=== PATIENT | female | born 1950 | race African-American/Black ===

== ENCOUNTER 2016-02-24 14:06 | Emergency (ER) | payer MEDICARE, OTHER ==
[~2016-02-24] VITALS: Ht 168.9 cm; Wt 55.0 kg
[~2016-02-24 14:06] MED LIST: ASPI81TA11 PO; CHOL1TAB42 PO; HYDR-2374 PO; LAMI200T PO; MACR100C2 PO; PROZ40CA PO; RISP1 PO
[2016-02-24 14:08] VITALS: BP 159/71; PULSE 95; RESP 12; TEMP 98.9; O2SAT 99
[2016-02-24 15:34] LABS: BACTERIA, URINE OCC /hpf; BLOOD, URINE NEG (NEG); COMMENT (UR) CULTURE INDICATED; CULTURE IF INDICATED CULTURE INDICATED; GLUCOSE,URINE NEG (NEG); KETONE, URINE NEG (NEG); NITRITE,URINE NEG (NEG); SQUAMOUS EPITHELIAL CELL URINE <1 /hpf (0-5); URINE COLOR YELLOW (YELLW/STRAW)
[2016-02-24] MEDS ORDERED: TRIAMCINOLONE ACETONIDE 0.1% OINT 15 GM TUBE TOPICAL ONE (16:15)
--- NOTE | 2016-02-24 16:15 | PD ---
HPI Chief Complaint: Complaint Time Seen by Provider: 15:00 Travel History International Travel<30 days: No Contact w/Intl Traveler<30days: No Traveled to known affect area: No History of Present Illness HPI Patient is a 65-year-old female who presented to emergency department complaining of urinary frequency, burning and itching in her perineal area. She states this started again yesterday. She states that she has a prolapsed bladder. She denies any fever, chills, nausea, vomiting, abdominal pain or back pain. PFSH Past Medical History Arthritis: Yes (osteoarhritis, RHEUMATOID) Asthma: No Autoimmune Disease: No Blood Disorders: No Bipolar Disorder: Yes Anxiety: Yes Depression: Yes Heart Rhythm Problems: No Cancer: No Cardiovascular Problems: No High Cholesterol: No Chemotherapy: No Chest Pain: No Congestive Heart Failure: No COPD: No Cerebrovascular Accident: Yes Diabetes: Yes Dialysis: Yes (h/o for the past 2 years) Diminished Hearing: No Endocrine: Yes Gastrointestinal Disorders: Yes GERD: No Glaucoma: No Genitourinary: Yes Headaches: No Hepatitis: No Hiatal Hernia: No Heparin Induced Thrombocytopen: No Hypertension: No Immune Disorder: Yes Implanted Vascular Access Dvce: No Kidney Stones: No Musculoskeletal: Yes Neurologic: No Psychiatric: Yes (pt has had psychiatric problems since 1992) Reproductive: No Respiratory: Yes Immunizations Current: Yes Migraines: No Myocardial Infarction: No Radiation Therapy: No Renal Failure: Yes Seizures: No Sickle Cell Disease: No Sleep Apnea: No Thyroid Disease: No Ulcer: No ?: Not Past Surgical History Abdominal Surgery: No AICD: No Appendectomy: No Arteriovenous Shunt: No Cardiac Surgery: No Cholecystectomy: No Ear Surgery: No Endocrine Surgery: No Eye Surgery: No Genitourinary Surgery: No Gynecologic Surgery: Yes (PARTIAL HYSTERECTOMY) Hysterectomy: Yes (PARTIAL) Insulin Pump: No Joint Replacement: No Neurologic Surgery: No Oral Surgery: No Pacemaker: No Thoracic Surgery: No Other Surgery: Yes (hysterectomy) Social History Alcohol Use: No Tobacco Use: No Substance Use: No Allergies-Medications (Allergen,Severity, Reaction): Coded Allergies: Percocet (Verified Allergy, Intermediate, ITCHING, 02/24/16) Ultram (Verified Allergy, Mild, ITCH, 02/24/16) Wellbutrin (Verified Allergy, Mild, ITCH, 02/24/16) Morphine (Verified Adverse Reaction, Intermediate, VOMITING, 02/24/16) Vistaril (Verified Adverse Reaction, Intermediate, SHAKING AND JERKING, 02/24/16) Reported Meds & Prescriptions Reported Meds & Active Scripts Active Macrobid (Nitrofurantoin Monoh/Nitrofur Macro) 100 Mg Cap 100 Mg PO BID 7 Days Risperdal (Risperidone) 1 Mg Tab 1 Mg PO Q12HR Aspirin EC (Aspirin) 81 Mg Tabdr 81 Mg PO DAILY Reported Hydrocodone-Acetaminophen 10-300 Tab 1 Tab PO BID PRN Vitamin D-3 (Cholecalciferol) 2,000 Unit Tab 2,000 Mg PO Lamictal (Lamotrigine) 200 Mg Tab 200 Mg PO DAILY Prozac (Fluoxetine HCl) 40 Mg Cap 20 Mg PO DAILY IN THE AM Review of Systems Except as stated in HPI: all other systems reviewed are Neg General / Constitutional: No: Fever Cardiovascular: No: Chest Pain or Discomfort Respiratory: No: Shortness of Breath Gastrointestinal: No: Nausea, Vomiting, Diarrhea, Abdominal Pain, Changes in Bowel Habits Genitourinary: Positive: Frequency, Dysuria, Other (perineal itching) Skin: Positive Itching Physical Exam Narrative GENERAL: Well-nourished, well-developed patient. SKIN: Warm and dry. HEAD: Normocephalic. EYES: No scleral icterus. No injection or drainage. NECK: Supple, trachea midline. No JVD or lymphadenopathy. CARDIOVASCULAR: Regular rate and rhythm without murmurs, gallops, or rubs. RESPIRATORY: Breath sounds equal bilaterally. No accessory muscle use. GASTROINTESTINAL: Abdomen soft, non-tender, nondistended. Positive bowel sounds , no rebound, no guarding. GENITOURINARY: No discharge noted, peroneal skin appears dry, bladder prolapse. MUSCULOSKELETAL: No cyanosis, or edema. BACK: Nontender without obvious deformity. No CVA tenderness. Data Data Last Documented VS Vital Signs Date Time Temp Pulse Resp B/P Pulse Ox O2 Delivery O2 Flow Rate FiO2 02/24/16 14:08 98.9 95 12 159/71 99 Room Air Orders Urinalysis - C+S If Indicated (02/24/16 14:51) Urine Culture (02/24/16 15:00) Labs Laboratory Tests Test 02/24/16 15:00 Urine Color YELLOW Urine Turbidity HAZY Urine pH 5.0 Urine Specific Vantage 1.008 Urine Protein NEG mg/dL Urine Glucose (UA) NEG mg/dL Urine Ketones NEG mg/dL Urine Occult Blood NEG Urine Nitrite NEG Urine Bilirubin NEG Urine Urobilinogen LESS THAN 2.0 MG/DL Urine Leukocyte Esterase LARGE Urine RBC 2 /hpf Urine WBC 42 /hpf Urine Squamous Epithelial <1 /hpf Cells Urine Bacteria OCC /hpf Microscopic Urinalysis Comment CULTURE INDICATED MDM Medical Decision Making Medical Screen Exam Complete: Yes Emergency Medical Condition: Yes Interpretation(s) Vital Signs Date Time Temp Pulse Resp B/P Pulse Ox O2 Delivery O2 Flow Rate FiO2 02/24/16 14:08 98.9 95 12 159/71 99 Room Air Differential Diagnosis UTI versus atrophic vaginitis versus contact dermatitis versus other Narrative Course Patient is a 65 year old female who presented to the emergency department for evaluation of urinary symptoms as well as perineal itching. Her medical record has been reviewed, she has been the emergency department several times over the last 2 weeks with the same complaint as well as other vague complaints. Urinalysis is indicative of a urinary tract infection, it is questionable whether or not patient has been compliant with therapy. Additionally physical examination appears consistent with atrophic vaginitis. Patient was advised that she should follow-up with her [facility]PER[facility] for further evaluation and ongoing management. She was encouraged to contact her primary doctor and set up a follow-up appointment. Patient will be given oral antibiotics for the urinary tract infection as well as a topical cream for the perineal itching. Patient is stable for discharge Diagnosis Primary Impression: UTI (urinary tract infection) Qualified Code: N39.0 - Urinary tract infection with hematuria, site unspecified Additional Impression: Postmenopausal symptoms Referrals: Library Historian 1 week Primary Care Physician 2 days Patient Instructions: General Instructions, Urinary Tract Infection in Women ( ED) Additional Instructions: Follow-up with your primary doctor for ongoing evaluation and management of her chronic health conditions Follow-up with your life specialist Take medications as directed Return to emergency department for any new or worsening symptoms Med/Other Pt SpecificInfo: Prescription(s) given Scripts Triamcinolone Topical 0.025 % Oint1 Applic TOPICAL BID 5 Days Ref 0 Apply to outer labia twice daily for 5 days. Do not apply to inner labia or to vagina. Prov:Maki Curtis 02/24/16 Ciprofloxacin (Cipro)250 Mg Lee868 Mg PO BID 5 Days Ref 0 Prov:Maki Curtis 02/24/16 Disposition: 01 DISCHARGE HOME Condition: Stable Maki Curtis Feb 24, 2016 16:15
[2016-02-24] MEDS ORDERED: CIPR250T52 PO (16:19)
[2016-02-24] MEDS ORDERED: TRIA0.022 TOPICAL (16:19)
== END 2016-02-24 16:31 | disposition home or self-care (01) ==
LOC: NEPB 14:06
DX: N39.0 Urinary tract infection, site not specified (principal); E11.9 Type 2 diabetes mellitus without complications; Z99.2 Dependence on renal dialysis; N19 Unspecified kidney failure; N95.2 Postmenopausal atrophic vaginitis
CPT/HCPCS: 81001; 87086; 99283

== ENCOUNTER 2016-03-02 08:03 | Emergency (ER) | payer MEDICARE, OTHER ==
[~2016-03-02] VITALS: Ht 167.6 cm; Wt 60.0 kg
[~2016-03-02 08:03] MED LIST changes: +CIPR250T52 PO; +TRIA0.022 TOPICAL
[2016-03-02 08:05] VITALS: BP 159/68; PULSE 73; RESP 16; TEMP 98; O2SAT 100
[2016-03-02] MEDS ORDERED: AMLO2.5T PO (08:14)
--- NOTE | 2016-03-02 08:23 | PD ---
HPI Chief Complaint: Allergic/Adverse Reaction Time Seen by Provider: 08:19 Travel History International Travel<30 days: No Contact w/Intl Traveler<30days: No Traveled to known affect area: No History of Present Illness HPI 65-year-old female with history of hypertension, presents to the ER today because she states that she started taking Norvasc for the first time last night , woke up this morning and feels like her lips are swollen and she is having paresthesias in her fingers. She denies any rashes, shortness of breath, difficulty swallowing, or any other issues. Modifying Factors: None Associated Signs & Symptoms: Lip swelling after taking Norvasc last night Risk Factors: None PFSH Past Medical History Arthritis: Yes (osteoarhritis, RHEUMATOID) Asthma: No Autoimmune Disease: No Blood Disorders: No Bipolar Disorder: Yes Anxiety: Yes Depression: Yes Heart Rhythm Problems: No Cancer: No Cardiovascular Problems: No High Cholesterol: No Chemotherapy: No Chest Pain: No Congestive Heart Failure: No COPD: No Cerebrovascular Accident: Yes Diabetes: Yes Patient Takes Glucophage: No Dialysis: Yes (h/o for the past 2 years) Diminished Hearing: No Endocrine: Yes Gastrointestinal Disorders: Yes GERD: No Glaucoma: No Genitourinary: Yes Headaches: No Hepatitis: No Hiatal Hernia: No Heparin Induced Thrombocytopen: No Hypertension: No Immune Disorder: Yes Implanted Vascular Access Dvce: No Kidney Stones: No Musculoskeletal: Yes Neurologic: No Psychiatric: Yes (pt has had psychiatric problems since 1992) Reproductive: No Respiratory: Yes Immunizations Current: Yes Migraines: No Myocardial Infarction: No Radiation Therapy: No Renal Failure: Yes Seizures: No Sickle Cell Disease: No Sleep Apnea: No Thyroid Disease: No Ulcer: No Past Surgical History Abdominal Surgery: No AICD: No Appendectomy: No Arteriovenous Shunt: No Cardiac Surgery: No Cholecystectomy: No Ear Surgery: No Endocrine Surgery: No Eye Surgery: No Genitourinary Surgery: No Gynecologic Surgery: Yes (PARTIAL HYSTERECTOMY) Hysterectomy: Yes (PARTIAL) Insulin Pump: No Joint Replacement: No Neurologic Surgery: No Oral Surgery: No Pacemaker: No Thoracic Surgery: No Other Surgery: Yes (hysterectomy) Social History Alcohol Use: No Tobacco Use: No Substance Use: No Allergies-Medications (Allergen,Severity, Reaction): Coded Allergies: Percocet (Verified Allergy, Intermediate, ITCHING, 03/02/16) Ultram (Verified Allergy, Mild, ITCH, 03/02/16) Wellbutrin (Verified Allergy, Mild, ITCH, 03/02/16) Morphine (Verified Adverse Reaction, Intermediate, VOMITING, 03/02/16) Vistaril (Verified Adverse Reaction, Intermediate, SHAKING AND JERKING, 12/07) Reported Meds & Prescriptions Reported Meds & Active Scripts Active Benadryl Allergy (Diphenhydramine HCl) 25 Mg Tab 25 Mg PO Q6H PRN Medrol Dosepak (Methylprednisolone) 4 Mg Dspk 4 Mg PO DIRECTED Per Pharmacist direction Triamcinolone Topical 0.025 % Oint 1 Applic TOPICAL BID 5 Days Apply to outer labia twice daily for 5 days. Do not apply to inner labia or to vagina. Risperdal (Risperidone) 1 Mg Tab 1 Mg PO Q12HR Aspirin EC (Aspirin) 81 Mg Tabdr 81 Mg PO DAILY Reported Amlodipine (Amlodipine Besylate) 2.5 Mg Tab Unknown Dose PO DAILY Hydrocodone-Acetaminophen 10-300 Tab 1 Tab PO BID PRN Vitamin D-3 (Cholecalciferol) 2,000 Unit Tab 2,000 Mg PO Lamictal (Lamotrigine) 200 Mg Tab 200 Mg PO DAILY Prozac (Fluoxetine HCl) 40 Mg Cap 20 Mg PO DAILY IN THE AM Review of Systems Except as stated in HPI: all other systems reviewed are Neg Physical Exam Narrative GENERAL: Well-nourished, well-developed elderly -[place] female patient in no acute distress. SKIN: Warm and dry. HEAD: Normocephalic. EYES: No scleral icterus. No injection or drainage. ENT: Mucosa pink and moist. No erythema or exudates. No uvular edema. No uvular , palatal, or tonsillar deviation. Airway patent. I do not see obvious angioedema on exam. NECK: Supple, trachea midline. CARDIOVASCULAR: Regular rate and rhythm without murmurs, gallops, or rubs. RESPIRATORY: Breath sounds equal bilaterally. No accessory muscle use. No wheezes, crackles or rhonchi. GASTROINTESTINAL: Abdomen soft, non-tender, nondistended. MUSCULOSKELETAL: No cyanosis, or edema. BACK: Nontender without obvious deformity. No CVA tenderness. Data Data Last Documented VS Vital Signs Date Time Temp Pulse Resp B/P Pulse Ox O2 Delivery O2 Flow Rate FiO2 03/02/16 08:05 98.0 73 16 159/68 100 Orders Basic Metabolic Panel (Bmp) (03/02/16 08:19) Complete Blood Count With Diff (03/02/16 08:19) Ecg Monitoring (03/02/16 08:19) Iv Access Insert/Monitor (03/02/16 08:19) Oximetry (03/02/16 08:19) Diphenhydramine Inj (Benadryl Inj) (03/02/16 08:30) Methylprednisolone So Succ Inj (Solumedr (03/02/16 08:30) Famotidine Inj (Pepcid Inj) (03/02/16 08:30) Sodium Chloride 0.9% Flush (Ns Flush) (03/02/16 08:30) Labs Laboratory Tests Test 03/02/16 08:27 White Blood Count 2.9 TH/MM3 Red Blood Count 3.12 MIL/MM3 Hemoglobin 9.5 GM/DL Hematocrit 29.4 % Mean Corpuscular Volume 94.5 FL Mean Corpuscular Hemoglobin 30.5 PG Mean Corpuscular Hemoglobin 32.3 % Concent Red Cell Distribution Width 14.6 % Platelet Count 155 TH/MM3 Mean Platelet Volume 9.4 FL Neutrophils (%) (Auto) 59.2 % Lymphocytes (%) (Auto) 24.8 % Monocytes (%) (Auto) 10.1 % Eosinophils (%) (Auto) 5.1 % Basophils (%) (Auto) 0.8 % Neutrophils # (Auto) 1.7 TH/MM3 Lymphocytes # (Auto) 0.7 TH/MM3 Monocytes # (Auto) 0.3 TH/MM3 Eosinophils # (Auto) 0.1 TH/MM3 Basophils # (Auto) 0.0 TH/MM3 CBC Comment DIFF FINAL Differential Comment Sodium Level 144 MEQ/L Potassium Level 4.7 MEQ/L Chloride Level 111 MEQ/L Carbon Dioxide Level 26.7 MEQ/L Anion Gap 6 MEQ/L Blood Urea Nitrogen 35 MG/DL Creatinine 2.02 MG/DL Estimat Glomerular Filtration 30 ML/MIN Rate Random Glucose 82 MG/DL Calcium Level 8.5 MG/DL MDM Medical Decision Making Medical Screen Exam Complete: Yes Emergency Medical Condition: Yes Medical Record Reviewed: Yes Interpretation(s) Laboratory Tests Test 03/02/16 08:27 White Blood Count 2.9 TH/MM3 (4.0-11.0) Red Blood Count 3.12 MIL/MM3 (4.00-5.30) Hemoglobin 9.5 GM/DL (11.6-15.3) Hematocrit 29.4 % (35.0-46.0) Monocytes (%) (Auto) 10.1 % (0.0-8.0) Eosinophils (%) (Auto) 5.1 % (0.0-4.0) Neutrophils # (Auto) 1.7 TH/MM3 (1.8-7.7) Lymphocytes # (Auto) 0.7 TH/MM3 (1.0-4.8) Chloride Level 111 MEQ/L (98-107) Blood Urea Nitrogen 35 MG/DL (7-18) Creatinine 2.02 MG/DL (0.50-1.00) Estimat Glomerular Filtration 30 ML/MIN (>89) Rate Differential Diagnosis Allergic reaction versus anxiety attack versus electrolyte abnormalities Narrative Course I do not see any obvious signs of angioedema. However, considering the symptoms and new medication, Benadryl and Cipro Medrol was initiated for the patient as well as Pepcid. Vital signs are stable in the ER. She is observed for several hours and I do not see any signs of progression. At this point, my plan would be to release her with further treatment for allergic reaction. We will stop the Norvasc for now and have her follow-up with primary care physician. They can determine her further blood pressure control. Return for any worsening and lip swelling, difficulty swallowing, shortness of breath, and as needed. The plan was discussed with the patient and she states understanding. Diagnosis Primary Impression: Allergic reaction caused by a drug Med/Other Pt SpecificInfo: Prescription(s) given, Med Stopped (amlodipine) Scripts Diphenhydramine (Benadryl Allergy)25 Mg Tab25 Mg PO Q6H PRN (ALLERGIES) #20 TAB Ref 0 Prov:Gopi Lui MD 03/02/16 Methylprednisolone Dosepak (Medrol Dosepak)4 Mg Dspk4 Mg PO DIRECTED #1 DSPK Ref 0 Per Pharmacist direction Prov:Gopi Lui MD 03/02/16 Disposition: 01 DISCHARGE HOME Condition: Stable Gopi Lui MD Mar 02, 2016 08:23
[2016-03-02] MEDS ORDERED: SODIUM CHLORIDE 0.9% FLUSH 5 ML FLUSH IVF PRN (08:30)
[2016-03-02] MEDS ORDERED: FAMOTIDINE 20 MG/2 ML VIAL IV PUSH ONE (08:30)
[2016-03-02] MEDS ORDERED: diphenhydrAMINE HCL 50 MG/ML VIAL IVP ONE (08:30)
[2016-03-02] MEDS ORDERED: methylPREDNISolone SOD SUCC 125 MG/2 ML VIAL IVP ONE (08:30)
[2016-03-02 08:43] LABS: AUTOMATED NEUTROPHIL # 1.7 TH/MM3 (1.8-7.7); BASOPHIL % 0.8 % (0.0-2.0); EOSINOPHIL # 0.1 TH/MM3 (0-0.4); EOSINOPHIL % 5.1 % (0.0-4.0); HEMATOCRIT 29.4 % (35.0-46.0); HEMO FLAGS DIFF FINAL; LYMPH % 24.8 % (9.0-44.0); LYMPHOCYTE # 0.7 TH/MM3 (1.0-4.8); MEAN CELL VOLUME 94.5 FL (80.0-100.0); MEAN CORPUSCULAR HEMOGLOBIN 30.5 PG (27.0-34.0); MEAN CORPUSCULAR HGB CONC 32.3 % (32.0-36.0); MONO % 10.1 % (0.0-8.0); NEUT % 59.2 % (16.0-70.0); PLATELET COUNT 155 TH/MM3 (150-450); RED BLOOD COUNT 3.12 MIL/MM3 (4.00-5.30); RED CELL DISTRIBUTION WIDTH 14.6 % (11.6-17.2); WHITE BLOOD COUNT 2.9 TH/MM3 (4.0-11.0)
[2016-03-02 08:59] LABS: BICARBONATE 26.7 MEQ/L (21.0-32.0); POTASSIUM 4.7 MEQ/L (3.5-5.1)
[2016-03-02] MEDS ORDERED: MEDR4PAK PO (09:14)
[2016-03-02] MEDS ORDERED: BENA25TA3 PO (09:14)
[2016-03-02 10:00] VITALS: BP 155/75; PULSE 80; RESP 14; O2SAT 97
== END 2016-03-02 10:48 | disposition home or self-care (01) ==
LOC: NEPE 08:03
DX: T46.1X5A Adverse effect of calcium-channel blockers, initial encounter (principal); I10 Essential (primary) hypertension; Z99.2 Dependence on renal dialysis
CPT/HCPCS: 80048; 85025; 96374; 96375; 99283; J1200; J2930

== ENCOUNTER 2016-03-04 01:25 | Emergency (ER) | payer MEDICARE, OTHER ==
[~2016-03-04 01:25] MED LIST changes: +AMLO2.5T PO; +BENA25TA3 PO; -CIPR250T52 PO; -MACR100C2 PO; +MEDR4PAK PO
[2016-03-04 01:26] VITALS: BP 149/75; PULSE 78; RESP 16; TEMP 98.1; O2SAT 98
--- NOTE | 2016-03-04 01:50 | PD ---
HPI Chief Complaint: Anxiety Time Seen by Provider: 01:40 Travel History International Travel<30 days: No Contact w/Intl Traveler<30days: No Traveled to known affect area: No History of Present Illness HPI 65 year old female with a history of bipolar disorder, anxiety, diabetes, frequent visits to this emergency room presents for evaluation of anxiety. The patient reports that this evening she ate some candy and because she is diabetic she was concerned that she may go into a coma. She started feeling very anxious and called 911. She reports the paramedics told her that her blood sugar was normal. She continues to feel anxious. She typically takes Xanax for anxiety but she has been out of it for one week. Denies any suicidal or homicidal thoughts. She has no other complaints at this time. PFSH Past Medical History Arthritis: Yes (osteoarhritis, RHEUMATOID) Asthma: No Autoimmune Disease: No Blood Disorders: No Bipolar Disorder: Yes Anxiety: Yes Depression: Yes Heart Rhythm Problems: No Cancer: No Cardiovascular Problems: No High Cholesterol: No Chemotherapy: No Chest Pain: No Congestive Heart Failure: No COPD: No Cerebrovascular Accident: Yes Diabetes: Yes Dialysis: Yes (h/o for the past 2 years) Diminished Hearing: No Endocrine: Yes Gastrointestinal Disorders: Yes GERD: No Glaucoma: No Genitourinary: Yes Headaches: No Hepatitis: No Hiatal Hernia: No Heparin Induced Thrombocytopen: No Hypertension: No Immune Disorder: Yes Implanted Vascular Access Dvce: No Kidney Stones: No Musculoskeletal: Yes Neurologic: No Psychiatric: Yes (pt has had psychiatric problems since 1992) Reproductive: No Respiratory: Yes Immunizations Current: Yes Migraines: No Myocardial Infarction: No Radiation Therapy: No Renal Failure: Yes Seizures: No Sickle Cell Disease: No Sleep Apnea: No Thyroid Disease: No Ulcer: No ?: Not Past Surgical History Abdominal Surgery: No AICD: No Appendectomy: No Arteriovenous Shunt: No Cardiac Surgery: No Cholecystectomy: No Ear Surgery: No Endocrine Surgery: No Eye Surgery: No Genitourinary Surgery: No Gynecologic Surgery: Yes (PARTIAL HYSTERECTOMY) Hysterectomy: Yes (PARTIAL) Insulin Pump: No Joint Replacement: No Neurologic Surgery: No Oral Surgery: No Pacemaker: No Thoracic Surgery: No Other Surgery: Yes (hysterectomy) Social History Alcohol Use: No Tobacco Use: No Substance Use: No Allergies-Medications (Allergen,Severity, Reaction): Coded Allergies: Percocet (Verified Allergy, Intermediate, ITCHING, 03/04/16) Ultram (Verified Allergy, Mild, ITCH, 03/04/16) Wellbutrin (Verified Allergy, Mild, ITCH, 03/04/16) Morphine (Verified Adverse Reaction, Intermediate, VOMITING, 03/04/16) Vistaril (Verified Adverse Reaction, Intermediate, SHAKING AND JERKING, 02/06) Reported Meds & Prescriptions Reported Meds & Active Scripts Active Benadryl Allergy (Diphenhydramine HCl) 25 Mg Tab 25 Mg PO Q6H PRN Medrol Dosepak (Methylprednisolone) 4 Mg Dspk 4 Mg PO DIRECTED Per Pharmacist direction Triamcinolone Topical 0.025 % Oint 1 Applic TOPICAL BID 5 Days Apply to outer labia twice daily for 5 days. Do not apply to inner labia or to vagina. Risperdal (Risperidone) 1 Mg Tab 1 Mg PO Q12HR Aspirin EC (Aspirin) 81 Mg Tabdr 81 Mg PO DAILY Reported Amlodipine (Amlodipine Besylate) 2.5 Mg Tab Unknown Dose PO DAILY Hydrocodone-Acetaminophen 10-300 Tab 1 Tab PO BID PRN Vitamin D-3 (Cholecalciferol) 2,000 Unit Tab 2,000 Mg PO Lamictal (Lamotrigine) 200 Mg Tab 200 Mg PO DAILY Prozac (Fluoxetine HCl) 40 Mg Cap 20 Mg PO DAILY IN THE AM Review of Systems Except as stated in HPI: all other systems reviewed are Neg Physical Exam Narrative GENERAL: Well-developed well-nourished female in no acute distress SKIN: Warm and dry. HEAD: Atraumatic. Normocephalic. EYES: Pupils equal and round. No scleral icterus. No injection or drainage. ENT: No nasal bleeding or discharge. Mucous membranes pink and moist. NECK: Trachea midline. No JVD. CARDIOVASCULAR: Regular rate and rhythm. No murmur appreciated. RESPIRATORY: No accessory muscle use. Clear to auscultation. Breath sounds equal bilaterally. GASTROINTESTINAL: Abdomen soft, non-tender, nondistended. MUSCULOSKELETAL: No obvious deformities. No clubbing. No cyanosis. No edema. NEUROLOGICAL: Awake and alert. No obvious cranial nerve deficits. Motor grossly within normal limits. Normal speech. PSYCHIATRIC: Appropriate mood and affect; insight and judgment normal. Data Data Last Documented VS Vital Signs Date Time Temp Pulse Resp B/P Pulse Ox O2 Delivery O2 Flow Rate FiO2 1/12/17 01:26 98.1 78 16 149/75 98 Room Air Orders Alprazolam (Xanax) (03/04/16 02:00) Ondansetron Odt (Zofran Odt) (03/04/16 02:00) Blood Glucose (03/04/16 01:49) MDM Medical Decision Making Medical Screen Exam Complete: Yes Emergency Medical Condition: Yes Medical Record Reviewed: Yes Differential Diagnosis Anxiety, medication refill, hyperglycemia Narrative Course 65 her old female history of anxiety disorder typically takes Xanax but ran out one week ago. She presents after feeling anxious about possible high blood sugar secondary to eating candy this evening. The plan is to give the patient a dose of Xanax and Zofran here. Her blood sugar was checked and was 97. The patient is stable for discharge. Diagnosis Primary Impression: Anxiety Additional Instructions: Follow-up closely with your primary care physician, monitor blood sugar on a regular basis, return for any emergent medical conditions. Med/Other Pt SpecificInfo: No Change to Meds Disposition: 01 DISCHARGE HOME Condition: Stable Ervin Ann Mar 04, 2016 01:50
[2016-03-04] MEDS ORDERED: ONDANSETRON ODT 4 MG TAB PO ONE (02:00)
[2016-03-04] MEDS ORDERED: ALPRAZolam 1 MG TAB PO ONE (02:00)
== END 2016-03-04 02:22 | disposition home or self-care (01) ==
LOC: NEPB 01:25
DX: F41.8 Other specified anxiety disorders (principal); F31.9 Bipolar disorder, unspecified; Z99.2 Dependence on renal dialysis; E11.9 Type 2 diabetes mellitus without complications; N19 Unspecified kidney failure
CPT/HCPCS: 99283

== ENCOUNTER 2016-03-10 05:36 | Emergency (ER) | payer MEDICARE, OTHER ==
[~2016-03-10] VITALS: Ht 170.2 cm; Wt 65.0 kg
[2016-03-10 05:43] VITALS: BP 156/77; PULSE 84; RESP 20; TEMP 97.9; O2SAT 100
[2016-03-10] MEDS ORDERED: LORazepam 2 MG/ML VIAL IV PUSH ONE (05:45)
--- NOTE | 2016-03-10 06:35 | PD ---
HPI . Numbness and tingling Chief Complaint: Numbness/Tingling Time Seen by Provider: 05:38 Travel History International Travel<30 days: No Contact w/Intl Traveler<30days: No Traveled to known affect area: No History of Present Illness HPI Patient presents with the acute onset of numbness and tingling of her feet. She feels very anxious. She has had similar symptoms in the past. PFSH Past Medical History Arthritis: Yes (osteoarhritis, RHEUMATOID) Asthma: No Autoimmune Disease: No Blood Disorders: No Bipolar Disorder: Yes Anxiety: Yes Depression: Yes Heart Rhythm Problems: No Cancer: No Cardiovascular Problems: No High Cholesterol: No Chemotherapy: No Chest Pain: No Congestive Heart Failure: No COPD: No Cerebrovascular Accident: Yes Diabetes: Yes Dialysis: Yes (h/o for the past 2 years) Diminished Hearing: No Endocrine: Yes Gastrointestinal Disorders: Yes GERD: No Glaucoma: No Genitourinary: Yes Headaches: No Hepatitis: No Hiatal Hernia: No Heparin Induced Thrombocytopen: No Hypertension: No Immune Disorder: Yes Implanted Vascular Access Dvce: No Kidney Stones: No Medical other: Yes (Dialysis 2011 stopped) Musculoskeletal: Yes Neurologic: No Psychiatric: Yes (pt has had psychiatric problems since 1992) Reproductive: No Respiratory: Yes Immunizations Current: Yes Migraines: No Myocardial Infarction: No Radiation Therapy: No Renal Failure: Yes Seizures: No Sickle Cell Disease: No Sleep Apnea: No Thyroid Disease: No Ulcer: No Tetanus Vaccination: < 5 Years Influenza Vaccination: Yes LMP: post menopausal : 3 Para: 0 Miscarriage: 3 Past Surgical History Abdominal Surgery: No AICD: No Appendectomy: No Arteriovenous Shunt: No Cardiac Surgery: No Cholecystectomy: No Ear Surgery: No Endocrine Surgery: No Eye Surgery: No Genitourinary Surgery: No Gynecologic Surgery: Yes (PARTIAL HYSTERECTOMY) Hysterectomy: Yes (1996) Insulin Pump: No Joint Replacement: No Neurologic Surgery: No Oral Surgery: No Pacemaker: No Thoracic Surgery: No Other Surgery: Yes (hysterectomy) Social History Alcohol Use: No Tobacco Use: No Substance Use: No Allergies-Medications (Allergen,Severity, Reaction): Coded Allergies: Percocet (Verified Allergy, Intermediate, ITCHING, 03/10/16) Ultram (Verified Allergy, Mild, ITCH, 03/10/16) Wellbutrin (Verified Allergy, Mild, ITCH, 03/10/16) Morphine (Verified Adverse Reaction, Intermediate, VOMITING, 03/10/16) Vistaril (Verified Adverse Reaction, Intermediate, SHAKING AND JERKING, ) Reported Meds & Prescriptions Reported Meds & Active Scripts Active Benadryl Allergy (Diphenhydramine HCl) 25 Mg Tab 25 Mg PO Q6H PRN Medrol Dosepak (Methylprednisolone) 4 Mg Dspk 4 Mg PO DIRECTED Per Pharmacist direction Triamcinolone Topical 0.025 % Oint 1 Applic TOPICAL BID 5 Days Apply to outer labia twice daily for 5 days. Do not apply to inner labia or to vagina. Risperdal (Risperidone) 1 Mg Tab 1 Mg PO Q12HR Aspirin EC (Aspirin) 81 Mg Tabdr 81 Mg PO DAILY Reported Amlodipine (Amlodipine Besylate) 2.5 Mg Tab Unknown Dose PO DAILY Hydrocodone-Acetaminophen 10-300 Tab 1 Tab PO BID PRN Vitamin D-3 (Cholecalciferol) 2,000 Unit Tab 2,000 Mg PO Review of Systems Neurologic: Positive: Paresthesia Psychiatric: Positive: Anxiety Physical Exam Narrative GENERAL: Patient initially had psychomotor agitation. She was very anxious. SKIN: Warm and dry. HEAD: Atraumatic. Normocephalic. EYES: Pupils equal and round. ENT: No nasal bleeding or discharge. Mucous membranes pink and moist. NECK: Trachea midline. CARDIOVASCULAR: Regular rate and rhythm. She has bounding pedal pulses. RESPIRATORY: No accessory muscle use. GASTROINTESTINAL: Abdomen soft, non-tender, nondistended. MUSCULOSKELETAL: No obvious deformities. No edema. Normal movement of all 4 extremities. NEUROLOGICAL: Awake and alert. No obvious cranial nerve deficits. Motor grossly within normal limits. Normal speech. PSYCHIATRIC: Very anxious. Data Data Last Documented VS Vital Signs Date Time Temp Pulse Resp B/P Pulse Ox O2 Delivery O2 Flow Rate FiO2 03/10/16 05:43 87 20 100 03/10/16 05:43 97.9 156/77 Orders Lorazepam Inj (Ativan Inj) (03/10/16 05:45) [facility] Medical Decision Making Medical Screen Exam Complete: Yes Emergency Medical Condition: Yes Medical Record Reviewed: Yes (patient has had several previous similar episodes. She was most recently seen here on 03/04 for same. She was treated with Xanax at that time.) Differential Diagnosis My differential diagnosis of paresthesias includes but is not limited to anxiety , radiculopathy, peripheral neuropathy, peripheral vascular disease, compartment syndrome Narrative Course Patient presented very anxious. She was treated with Ativan. She is now resting comfortably and states that her symptoms were markedly improved. Diagnosis Primary Impression: Anxiety Disposition: 01 DISCHARGE HOME Condition: Stable Michelle Robbins MD Mar 10, 2016 06:35
[2016-03-10 07:09] VITALS: BP 152/81; PULSE 85; RESP 20; O2SAT 100
--- NOTE | 2016-03-10 19:46 | EKG ---
Date Performed: 03/10/2016 Time Performed: 05:39:59 PTAGE: 65 years EKG: Sinus rhythm NORMAL ECG PREVIOUS TRACING : 02/14/2016 11.57 Compared to prior tracing no significant change DOCTOR: Abundio Loving Interpretating Date/Time 03/10/2016 19:45:04
== END 2016-03-10 07:58 | disposition home or self-care (01) ==
LOC: NEPC 05:36
DX: F41.9 Anxiety disorder, unspecified (principal); R20.2 Paresthesia of skin; M06.9 Rheumatoid arthritis, unspecified; Z86.73 Personal history of transient ischemic attack (TIA), and cerebral infarction without residual deficits; E11.9 Type 2 diabetes mellitus without complications
CPT/HCPCS: 93005; 96374; 99284; J2060

== ENCOUNTER 2016-03-14 03:31 | Emergency (ER) | payer MEDICARE, OTHER ==
[~2016-03-14] VITALS: Ht 175.3 cm; Wt 79.0 kg
[~2016-03-14 03:31] MED LIST changes: -LAMI200T PO; -PROZ40CA PO
[2016-03-14 03:35] VITALS: BP 144/76; PULSE 84; RESP 16; TEMP 98.4; O2SAT 96
[2016-03-14] MEDS ORDERED: LORazepam 1 MG TAB PO ONE (04:15)
--- NOTE | 2016-03-14 04:15 | PD ---
HPI Chief Complaint: Anxiety Time Seen by Provider: 04:07 Travel History International Travel<30 days: No Contact w/Intl Traveler<30days: No Traveled to known affect area: No History of Present Illness HPI 65-year-old female with history of bipolar disorder, anxiety, seen in the emergency department several times for anxiety, brought in by ambulance from home for apparent anxiety attack. Patient reports feeling numbness and tingling in her arms and legs and difficulty breathing which is typical for anxiety attacks. Upon my assessment of the patient, when I walked into the room the patient was sleeping comfortably. She is requesting Ativan. No chest pain. PFSH Past Medical History Hx Anticoagulant Therapy: Yes Arthritis: Yes (osteoarhritis, RHEUMATOID) Asthma: No Autoimmune Disease: No Blood Disorders: No Bipolar Disorder: Yes Anxiety: Yes Depression: Yes Heart Rhythm Problems: No Cancer: No Cardiovascular Problems: No High Cholesterol: No Chemotherapy: No Chest Pain: No Congestive Heart Failure: No COPD: No Cerebrovascular Accident: Yes Diabetes: Yes Patient Takes Glucophage: No Dialysis: Yes (h/o for the past 2 years) Diminished Hearing: No Endocrine: Yes Gastrointestinal Disorders: Yes GERD: No Glaucoma: No Genitourinary: Yes Headaches: No Hepatitis: No Hiatal Hernia: No Heparin Induced Thrombocytopen: No Hypertension: No Immune Disorder: Yes Implanted Vascular Access Dvce: No Kidney Stones: No Musculoskeletal: Yes Neurologic: No Psychiatric: Yes (pt has had psychiatric problems since 1992) Reproductive: No Respiratory: Yes Immunizations Current: Yes Migraines: No Myocardial Infarction: No Radiation Therapy: No Renal Failure: Yes Seizures: No Sickle Cell Disease: No Sleep Apnea: No Thyroid Disease: No Ulcer: No : 3 Para: 0 Miscarriage: 3 Past Surgical History Abdominal Surgery: No AICD: No Appendectomy: No Arteriovenous Shunt: No Cardiac Surgery: No Cholecystectomy: No Ear Surgery: No Endocrine Surgery: No Eye Surgery: No Genitourinary Surgery: No Gynecologic Surgery: Yes (PARTIAL HYSTERECTOMY) Hysterectomy: Yes (1996) Insulin Pump: No Joint Replacement: No Neurologic Surgery: No Oral Surgery: No Pacemaker: No Thoracic Surgery: No Other Surgery: Yes (hysterectomy) Social History Alcohol Use: No Tobacco Use: No Substance Use: No Allergies-Medications (Allergen,Severity, Reaction): Coded Allergies: Percocet (Verified Allergy, Intermediate, ITCHING, 03/14/16) Ultram (Verified Allergy, Mild, ITCH, 03/14/16) Wellbutrin (Verified Allergy, Mild, ITCH, 03/14/16) Morphine (Verified Adverse Reaction, Intermediate, VOMITING, 03/14/16) Vistaril (Verified Adverse Reaction, Intermediate, SHAKING AND JERKING, ) Reported Meds & Prescriptions Reported Meds & Active Scripts Active Benadryl Allergy (Diphenhydramine HCl) 25 Mg Tab 25 Mg PO Q6H PRN Medrol Dosepak (Methylprednisolone) 4 Mg Dspk 4 Mg PO DIRECTED Per Pharmacist direction Triamcinolone Topical 0.025 % Oint 1 Applic TOPICAL BID 5 Days Apply to outer labia twice daily for 5 days. Do not apply to inner labia or to vagina. Risperdal (Risperidone) 1 Mg Tab 1 Mg PO Q12HR Aspirin EC (Aspirin) 81 Mg Tabdr 81 Mg PO DAILY Reported Amlodipine (Amlodipine Besylate) 2.5 Mg Tab Unknown Dose PO DAILY Hydrocodone-Acetaminophen 10-300 Tab 1 Tab PO BID PRN Vitamin D-3 (Cholecalciferol) 2,000 Unit Tab 2,000 Mg PO Review of Systems Except as stated in HPI: all other systems reviewed are Neg Physical Exam Narrative GENERAL: Well-developed, well-nourished, comfortable, appears anxious, no acute distress. SKIN: Warm and dry. HEAD: Atraumatic. Normocephalic. EYES: Pupils equal and round. No scleral icterus. No injection or drainage. ENT: Mucous membranes pink and moist. NECK: Trachea midline. No JVD. No nuchal rigidity. CARDIOVASCULAR: Regular rate and rhythm. No murmur appreciated. RESPIRATORY: No accessory muscle use. Clear to auscultation. Breath sounds equal bilaterally. GASTROINTESTINAL: Abdomen soft, non-tender, nondistended. MUSCULOSKELETAL: No obvious deformities. No clubbing. No cyanosis. No edema. NEUROLOGICAL: Awake and alert. No obvious cranial nerve deficits. Motor grossly within normal limits. Normal speech. PSYCHIATRIC: Appears anxious. Data Data Last Documented VS Vital Signs Date Time Temp Pulse Resp B/P Pulse Ox O2 Delivery O2 Flow Rate FiO2 03/14/16 03:35 98.4 84 16 144/76 96 Orders Lorazepam (Ativan) (03/14/16 04:15) [facility] Medical Decision Making Medical Screen Exam Complete: Yes Emergency Medical Condition: Yes Differential Diagnosis Anxiety, panic attack, electrolyte abnormality unlikely, cardiopulmonary emergency unlikely Narrative Course Vital signs show heart rate 84, blood pressure 144/76, pulse ox 96% on room air , oral temp of 98.4F. The patient is well-known to the emergency department having several visits for anxiety. She presents with symptoms similar to previous episodes of anxiety. She is requesting Ativan. She was given a dose of oral Ativan 1 mg, and afterwards she states she is feeling a lot better and would like to go home. No suicidal or homicidal ideation. She is stable for discharge home with outpatient follow-up with her primary care physician this week. She was informed on when to return to the emergency department. She verbalizes understanding and agreement with plan. When the patient was being discharged by my nurse, she began to complain of feeling nauseous. Abdominal exam is benign. She will be given Zofran and discharged home. Diagnosis Primary Impression: Anxiety Referrals: Primary Care Physician 3 days Additional Instructions: Follow-up with your primary care physician this week. Return to the emergency department for worsening symptoms or any other concerns. Disposition: 01 DISCHARGE HOME Condition: Stable Getachew Hayes MD Mar 14, 2016 04:14
[2016-03-14] MEDS ORDERED: ONDANSETRON ODT 4 MG TAB PO ONE (06:30)
== END 2016-03-14 06:35 | disposition home or self-care (01) ==
LOC: NEPC 03:31
DX: F41.9 Anxiety disorder, unspecified (principal); Z99.2 Dependence on renal dialysis; E11.9 Type 2 diabetes mellitus without complications; Z86.73 Personal history of transient ischemic attack (TIA), and cerebral infarction without residual deficits; Z79.01 Long term (current) use of anticoagulants
CPT/HCPCS: 99283

== ENCOUNTER → 2016-04-01 | Outpatient (CLI) | payer MEDICARE, OTHER ==
[~2016-04-01] MED LIST changes: +ALPR0.25 PO; +CALC0.25 PO; +PYRI100T PO; +TRAZ50TA12 PO; +VITA10002 PO
[2016-04-01 15:59] LABS: HEMATOCRIT 30.3 % (35.0-46.0); MEAN CELL VOLUME 91.7 FL (80.0-100.0); MEAN CORPUSCULAR HEMOGLOBIN 30.7 PG (27.0-34.0); MEAN CORPUSCULAR HGB CONC 33.5 % (32.0-36.0); PLATELET COUNT 167 TH/MM3 (150-450); RED CELL DISTRIBUTION WIDTH 13.9 % (11.6-17.2); REVIEW FLAG FINAL; WHITE BLOOD COUNT 3.8 TH/MM3 (4.0-11.0)
[2016-04-01 16:26] LABS: BACTERIA, URINE OCC /hpf; BLOOD, URINE NEG (NEG); COMMENT (UR) CULTURE INDICATED; CULTURE IF INDICATED CULTURE INDICATED; GLUCOSE,URINE NEG (NEG); KETONE, URINE NEG (NEG); MUCUS URINE FEW /lpf (OCC); NITRITE,URINE NEG (NEG); SQUAMOUS EPITHELIAL CELL URINE 1 /hpf (0-5); URINE COLOR YELLOW (YELLW/STRAW)
[2016-04-01 16:50] LABS: ANION GAP 7 MEQ/L (5-15); BLOOD UREA NITROGEN 49 MG/DL (7-18); CHLORIDE 105 MEQ/L (98-107); GLOMERULAR FILTRATION RATE 26 ML/MIN (>89); GLUCOSE,FASTING 93 MG/DL (74-99); POTASSIUM 4.7 MEQ/L (3.5-5.1); SODIUM (NA) 137 MEQ/L (136-145)
[2016-04-01 16:55] LABS: TOTAL PROTEIN SPE 6.9 GM/DL (6.0-7.6); TRANSFERRIN IRON PROFILE 229 MG/DL (200-360)
[2016-04-02 22:51] LABS: ALBUMIN SPE 3.78 GM/DL (3.50-5.00); ALPHA 1 GLOBULIN 0.27 GM/DL (0.11-0.29); ALPHA 2 GLOBULIN 0.88 GM/DL (0.22-1.00); BETA GLOBULINS (SPE) 0.81 GM/DL (0.53-1.03)
== END ==
LOC: CLAB 15:03
PROVIDERS: ATTEND Internal Medicine Nephrology
DX: N18.4 Chronic kidney disease, stage 4 (severe) (principal); D63.1 Anemia in chronic kidney disease; R82.90 Unspecified abnormal findings in urine
CPT/HCPCS: 36415; 80069; 81001; 82570; 82607; 82746; 83540; 83550; 83970; 84156; 84165; 85027; 87086

== ENCOUNTER → 2016-04-08 | Outpatient (CLI) | payer MEDICARE, OTHER ==
[2016-04-08 15:12] LABS: URINE TOTAL PROTEIN TIMED 12.1 MG/DL
[2016-04-08 15:40] LABS: KAPPA LAMBDA RATIO 0.9 (1.57-3.93); TOTAL PROTEIN SPE 6.8 GM/DL (6.0-7.6)
[2016-04-10 23:53] LABS: KAPPA/LAMBDA FREE 0.33 (0.26-1.65)
[2016-04-12 10:16] LABS: ALBUMIN SPE 3.9 GM/DL (3.50-5.00); ALPHA 1 GLOBULIN 0.18 GM/DL (0.11-0.29); ALPHA 2 GLOBULIN 0.88 GM/DL (0.22-1.00); BETA GLOBULINS (SPE) 0.75 GM/DL (0.53-1.03)
== END ==
LOC: CLAB 14:40
PROVIDERS: ATTEND Physician Assistant
DX: D47.2 Monoclonal gammopathy (principal)
CPT/HCPCS: 36415; 82784; 83883; 84165; 86334; 86335

== ENCOUNTER → 2016-04-16 | Outpatient (CLI) | payer MEDICARE, OTHER | LOC: CLAB 13:58 | PROVIDERS: ATTEND Obstetrics & Gynecology | DX: Z11.3 Encounter for screening for infections with a predominantly sexual mode of transmission (principal) | CPT/HCPCS: 36415; 86592; 86593; 86780 ==

== ENCOUNTER → 2016-04-27 | Outpatient (CLI) | payer MEDICARE, OTHER ==
[2016-04-28 10:48] LABS: RAPID PLASMA REAGIN SCREEN REACTIVE (NON-REACTVE)
== END ==
LOC: CLAB 14:35
PROVIDERS: ATTEND Obstetrics & Gynecology
DX: A53.9 Syphilis, unspecified (principal)
CPT/HCPCS: 36415; 86592; 86593; 86780

== ENCOUNTER → 2016-05-04 | Outpatient (CLI) | payer MEDICARE, OTHER ==
[2016-05-04 15:22] LABS: HEMATOCRIT 31.9 % (35.0-46.0); MEAN CELL VOLUME 91.2 FL (80.0-100.0); MEAN CORPUSCULAR HEMOGLOBIN 29.8 PG (27.0-34.0); MEAN CORPUSCULAR HGB CONC 32.7 % (32.0-36.0); PLATELET COUNT 162 TH/MM3 (150-450); RED BLOOD COUNT 3.49 MIL/MM3 (4.00-5.30); RED CELL DISTRIBUTION WIDTH 13.9 % (11.6-17.2); REVIEW FLAG FINAL; WHITE BLOOD COUNT 4.1 TH/MM3 (4.0-11.0)
[2016-05-04 15:35] LABS: BLOOD, URINE NEG (NEG); COMMENT (UR) CULT NOT INDICATED; CULTURE IF INDICATED CULT NOT INDICATED; GLUCOSE,URINE NEG (NEG); KETONE, URINE NEG (NEG); NITRITE,URINE NEG (NEG); RENAL EPITHELIAL CELLS <1 /hpf; SQUAMOUS EPITHELIAL CELL URINE 3 /hpf (0-5); URINE COLOR LIGHT-YELLOW (YELLW/STRAW)
[2016-05-04 15:41] LABS: BICARBONATE 28.7 MEQ/L (21.0-32.0); POTASSIUM 5.1 MEQ/L (3.5-5.1)
== END ==
LOC: CLAB 14:53
PROVIDERS: ATTEND Physician Assistant
DX: N18.4 Chronic kidney disease, stage 4 (severe) (principal); N25.81 Secondary hyperparathyroidism of renal origin
CPT/HCPCS: 36415; 80069; 81001; 82306; 82570; 83970; 84156; 85027

== ENCOUNTER → 2016-05-20 | Outpatient (CLI) | payer MEDICARE, OTHER ==
[2016-05-21 14:11] LABS: RAPID PLASMA REAGIN SCREEN REACTIVE (NON-REACTVE)
== END ==
LOC: CLAB 14:17
PROVIDERS: ATTEND Internal Medicine Infectious Disease
DX: E11.9 Type 2 diabetes mellitus without complications (principal); R29.6 Repeated falls; R41.3 Other amnesia; A53.9 Syphilis, unspecified
CPT/HCPCS: 36415; 86592; 86593

== ENCOUNTER 2016-05-31 06:48 | Day surgery (SDC) | payer MEDICARE, OTHER ==
[~2016-05-31] VITALS: Ht 170.2 cm; Wt 77.3 kg
[~2016-05-31 06:48] MED LIST changes: -ALPR0.25 PO; -CALC0.25 PO; -PYRI100T PO; -TRAZ50TA12 PO; -VITA10002 PO
[2016-05-31 07:04] VITALS: BP 138/85; PULSE 90; RESP 20; TEMP 98.7; O2SAT 94
[2016-05-31] MEDS ORDERED: PYRI100T PO (07:09)
[2016-05-31] MEDS ORDERED: TRAZ50TA12 PO (07:09)
[2016-05-31] MEDS ORDERED: CALC0.25 PO (07:09)
[2016-05-31] MEDS ORDERED: ALPR0.25 PO (07:09)
[2016-05-31] MEDS ORDERED: VITA10002 PO (07:09)
[2016-05-31] MEDS ORDERED: SODIUM CHLOR 0.9% 1000 ML INJ 1,000 ML IV SCH (07:45)
[2016-05-31 07:49] LABS: AUTOMATED NEUTROPHIL # 1.7 TH/MM3 (1.8-7.7); BASOPHIL % 0.8 % (0.0-2.0); EOSINOPHIL # 0.2 TH/MM3 (0-0.4); EOSINOPHIL % 5.7 % (0.0-4.0); HEMATOCRIT 30.9 % (35.0-46.0); HEMO FLAGS DIFF FINAL; LYMPHOCYTE # 0.8 TH/MM3 (1.0-4.8); MEAN CELL VOLUME 89.2 FL (80.0-100.0); MEAN CORPUSCULAR HEMOGLOBIN 29.4 PG (27.0-34.0); MONO % 9.6 % (0.0-8.0); NEUT % 56.9 % (16.0-70.0); PLATELET COUNT 139 TH/MM3 (150-450); RED BLOOD COUNT 3.47 MIL/MM3 (4.00-5.30); RED CELL DISTRIBUTION WIDTH 13.7 % (11.6-17.2)
[2016-05-31 07:57] LABS: APTT (PATIENT) 25.3 SEC (24.3-30.1); PROTHROMBIN TIME - PATIENT 10.7 SEC (9.8-11.6)
[2016-05-31 08:08] LABS: BICARBONATE 26.9 MEQ/L (21.0-32.0); POTASSIUM 4.1 MEQ/L (3.5-5.1)
[2016-05-31 08:50] VITALS: BP 124/78; PULSE 67; RESP 18; TEMP 98.1; O2SAT 97
[2016-05-31 09:21] LABS: GROSS BLOOD TUBE #1 0 (0); GROSS BLOOD TUBE #2 0 (0); GROSS BLOOD TUBE #3 0 (0); SUPERNATE COLOR TUBE #1 CLEAR (CLEAR); SUPERNATE COLOR TUBE #2 CLEAR (CLEAR); SUPERNATE COLOR TUBE #3 CLEAR (CLEAR); VOLUME TUBE # 1 2.7 ML; VOLUME TUBE # 2 3.1 ML; VOLUME TUBE # 3 3.5 ML
--- NOTE | 2016-05-31 09:22 | RADRPT ---
EXAM DATE/TIME: 05/31/2016 08:33 [facility] COMPARISON: No previous studies available for comparison. INDICATIONS : Memory loss. poor coordination MEDICAL HISTORY : 1. CVP 2. Syphillis 3. DM 4. Renal dysfunction 5. Anemia SURGICAL HISTORY : 1. Hysterectomy 2. Tenkhoff catheter ENCOUNTER: Initial ACUITY: 4-6 months PAIN SCORE: 0/10 LUMBAR PUNCTURE TIME: 0845 hours FLUORO TIME: 1.5 minutes IMAGE SERIES: 0 ACCESS LEVEL: L3-4 FLUID: 14 cc of clear CSF was collected and sent to the laboratory for analysis. PROCEDURE : 1. Fluoroscopic guided lumbar puncture. The risks, benefits and alternatives to the procedure were explained and verbal and written consent w as obtained. The site was prepped in sterile fashion. Full sterile technique was used, including ca p, mask, sterile gloves and gown and a large sterile sheet. Hand hygiene and 2% chlorhexidine and/or betadine/alcohol prep was utilized per protocol for cutaneous antisepsis. The skin and subcutaneous tissues were infiltrated with local anesthetic solution. With fluoroscopic guidance the lumbar thecal sac was punctured at the level above. The fluid describ ed above was removed without difficulty. The patient tolerated the procedure well and there were no complications. CONCLUSION: Uncomplicated fluoroscopically guided lumbar puncture. Freeman Montgomery MD on May 31, 2016 at 9:20 Board Certified Radiologist. This report was verified electronically.
--- NOTE | 2016-05-31 09:40 | PD.RAD ---
Post Procedure Progress Note Pre Procedure Diagnosis: (1) Altered mental status Post Procedure Diagnosis: (1) Altered mental status Procedure Date: May 31, 2016 Supervising Radiologist: Freeman Montgomery Proceduralist/Assist: Trinidad Lomas, RT(R)(CV), Shyanne Elizabeth RT(R) Anesthesia: Local Plan of Activity Patient to Unit: ROPU Patient Condition: Good See PACS Report for procedural detail/treatment Spinal Procedure Lumbar Puncture L3-L4 Fluid Removal (CCs): 14 Fluid Description: Clear Puncture Time: 08:45 Freeman Montgomery MD May 31, 2016 09:40
[2016-05-31 09:51] LABS: CSF NEUTROPHILS 0 %; GROSS BLOOD TUBE #4 0 (0); SUPERNATE COLOR TUBE #4 CLEAR (CLEAR); WBC TUBE #4 2 /MM3 (0-10)
[2016-05-31 09:52] LABS: CSF LYMPHOCYTES 37 %; CSF MONOCYTES 63 %
[2016-05-31 10:40] VITALS: BP 128/76; PULSE 70; RESP 16; O2SAT 98
== END 2016-05-31 10:45 | disposition home or self-care (01) ==
LOC: HROP 06:48 → HRIP 06:51 → HROP 10:45
PROVIDERS: ATTEND Internal Medicine Infectious Disease
DX: R41.82 Altered mental status, unspecified (principal); E11.9 Type 2 diabetes mellitus without complications; I10 Essential (primary) hypertension; Z86.73 Personal history of transient ischemic attack (TIA), and cerebral infarction without residual deficits
CPT/HCPCS: 62270; 77003; 80048; 82945; 84157; 85025; 85610; 85730; 86592; 87070; 87205; 89051

== ENCOUNTER 2016-07-11 17:11 | Emergency (ER) | payer MEDICARE, OTHER ==
[~2016-07-11] VITALS: Ht 170.2 cm; Wt 80.0 kg
[~2016-07-11 17:11] MED LIST changes: +ALPR0.25 PO; +CALC0.25 PO; -MEDR4PAK PO; +PYRI100T PO; +TRAZ50TA12 PO; -TRIA0.022 TOPICAL; +VITA10002 PO
[2016-07-11 17:17] VITALS: BP 140/86; PULSE 95; RESP 18; TEMP 98.6; O2SAT 99
[2016-07-11 17:27] VITALS: O2SAT 98
[2016-07-11] MEDS ORDERED: SODIUM CHLORIDE 0.9% FLUSH 10 ML FLUSH IV FLUSH PRN (17:30)
--- NOTE | 2016-07-11 17:32 | PD ---
HPI Chief Complaint: Anxiety Time Seen by Provider: 17:28 Travel History International Travel<30 days: No Contact w/Intl Traveler<30days: No Traveled to known affect area: No History of Present Illness HPI Patient comes in complaining of uncontrolled anxiety since having her medication taken away from her approximately a month ago. Patient states she has not been sleeping well and has been fighting constipation over the past 3 weeks. Patient states she has not had a bowel movement in 3 weeks. Patient states she tried [id number] Epsom salts for this and did have a little small liquidy bowel movement. Patient tried using [id number] sleep aids with no improvement of her symptoms for sleeping. Patient states she's had intermittent hot and cold chills since being off her medication. Patient denies any chest pain, shortness of breath, nausea, vomiting, headaches, fevers , or loss or change in bladder. Patient complaining of cramping abdominal pain and feels her abdomen is distended. PFSH Past Medical History Hx Anticoagulant Therapy: Yes Arthritis: Yes (osteoarhritis, RHEUMATOID) Asthma: No Autoimmune Disease: No Blood Disorders: No Bipolar Disorder: Yes Anxiety: Yes Depression: Yes Heart Rhythm Problems: No Cancer: No Cardiovascular Problems: No High Cholesterol: No Chemotherapy: No Chest Pain: No Congestive Heart Failure: No COPD: No Cerebrovascular Accident: Yes Diabetes: Yes Patient Takes Glucophage: No Dialysis: Yes (h/o for the past 2 years) Diminished Hearing: No Endocrine: Yes Gastrointestinal Disorders: Yes GERD: No Glaucoma: No Genitourinary: Yes Headaches: No Hepatitis: No Hiatal Hernia: No Heparin Induced Thrombocytopen: No Hypertension: Yes Immune Disorder: Yes Implanted Vascular Access Dvce: No Kidney Stones: No Musculoskeletal: Yes Neurologic: Yes (cva) Psychiatric: Yes (pt has had psychiatric problems since 1992) Reproductive: No Respiratory: Yes Immunizations Current: Yes Migraines: No Myocardial Infarction: No Radiation Therapy: No Renal Failure: Yes Seizures: No Sickle Cell Disease: No Sleep Apnea: No Thyroid Disease: No Ulcer: No : 3 Para: 0 Miscarriage: 3 Past Surgical History Abdominal Surgery: No AICD: No Appendectomy: No Arteriovenous Shunt: No Cardiac Surgery: No Cholecystectomy: No Ear Surgery: No Endocrine Surgery: No Eye Surgery: No Genitourinary Surgery: No Gynecologic Surgery: Yes (PARTIAL HYSTERECTOMY) Hysterectomy: Yes (1996) Insulin Pump: No Joint Replacement: No Neurologic Surgery: No Oral Surgery: No Pacemaker: No Thoracic Surgery: No Other Surgery: Yes (hysterectomy) Social History Alcohol Use: No Tobacco Use: No Substance Use: No Allergies-Medications (Allergen,Severity, Reaction): Coded Allergies: Percocet (Verified Allergy, Intermediate, ITCHING, 03/14/16) Tylenol #3 (Verified Allergy, Intermediate, Itching, 05/31/16) Ultram (Verified Allergy, Mild, ITCH, 03/14/16) Wellbutrin (Verified Allergy, Mild, ITCH, 03/14/16) Morphine (Verified Adverse Reaction, Intermediate, VOMITING, 03/14/16) Vistaril (Verified Adverse Reaction, Intermediate, SHAKING AND JERKING, ) Reported Meds & Prescriptions Reported Meds & Active Scripts Active Benadryl Allergy (Diphenhydramine HCl) 25 Mg Tab 25 Mg PO Q6H PRN Risperdal (Risperidone) 1 Mg Tab 1 Mg PO Q12HR Aspirin EC (Aspirin) 81 Mg Tabdr 81 Mg PO DAILY Reported Vitamin B-12 (Cyanocobalamin) 1,000 Mcg Tab 3,000 Mcg PO DAILY Vitamin B-6 (Pyridoxine HCl) 100 Mg Tab 100 Mg PO DAILY Trazodone (Trazodone HCl) 50 Mg Tab 50 Mg PO DAILY Alprazolam 0.25 Mg Tab 0.25 Mg PO Q8H PRN Calcitriol 0.25 Mcg Cap 0.25 Mcg PO EVERY OTHER DAY Amlodipine (Amlodipine Besylate) 2.5 Mg Tab Unknown Dose PO DAILY Hydrocodone-Acetaminophen 10-300 Tab 1 Tab PO BID PRN Vitamin D-3 (Cholecalciferol) 2,000 Unit Tab 2,000 Mg PO Review of Systems Except as stated in HPI: all other systems reviewed are Neg Physical Exam Narrative GENERAL: Well-developed, overly nourished, in no acute distress, and non-ill appearing. SKIN: Focused skin assessment warm and dry. HEAD: Atraumatic. Normocephalic. EYES: Pupils equal and round. EOMI. No scleral icterus. No injection or drainage. ENT: No nasal bleeding or discharge. Mucous membranes pink and moist. NECK: Trachea midline. No JVD. Supple. No nuclear rigidity. CARDIOVASCULAR: Regular rate and rhythm. No murmur appreciated. RESPIRATORY: No accessory muscle use. No respiratory distress. Clear to auscultation. Breath sounds equal bilaterally. GASTROINTESTINAL: Abdomen soft, non-tender, nondistended. Hepatic and splenic margins not palpable. Normal bowel sounds 4. No pulsatile mass. MUSCULOSKELETAL: No obvious deformities. No clubbing. No cyanosis. No edema. Full range of motion. NEUROLOGICAL: Awake and alert. No obvious cranial nerve deficits. Motor grossly within normal limits. Normal speech. PSYCHIATRIC: Appropriate mood and affect; insight and judgment normal. Data Data Last Documented VS Vital Signs Date Time Temp Pulse Resp B/P Pulse Ox O2 Delivery O2 Flow Rate FiO2 07/11/16 17:27 98 Room Air 07/11/16 17:17 98.6 95 18 140/86 Orders Complete Blood Count With Diff (07/11/16 17:25) Comprehensive Metabolic Panel (07/11/16 17:25) Lipase (07/11/16 17:25) Prothrombin Time / Inr (Pt) (07/11/16 17:25) Act Partial Throm Time (Ptt) (07/11/16 17:25) Urinalysis - C+S If Indicated (07/11/16 17:25) Ct Abd/Pel W/O Iv Contrast (07/11/16 17:25) Iv Access Insert/Monitor (07/11/16 17:25) Ecg Monitoring (07/11/16 17:25) Oximetry (07/11/16 17:25) Sodium Chloride 0.9% Flush (Ns Flush) (07/11/16 17:30) Lorazepam (Ativan) (07/11/16 19:30) Labs Laboratory Tests Test 07/11/16 07/11/16 17:35 18:30 White Blood Count 4.8 TH/MM3 Red Blood Count 3.83 MIL/MM3 Hemoglobin 11.2 GM/DL Hematocrit 34.1 % Mean Corpuscular Volume 89.0 FL Mean Corpuscular Hemoglobin 29.2 PG Mean Corpuscular Hemoglobin 32.8 % Concent Red Cell Distribution Width 13.7 % Platelet Count 172 TH/MM3 Mean Platelet Volume 9.3 FL Neutrophils (%) (Auto) 67.6 % Lymphocytes (%) (Auto) 20.7 % Monocytes (%) (Auto) 6.6 % Eosinophils (%) (Auto) 4.3 % Basophils (%) (Auto) 0.8 % Neutrophils # (Auto) 3.3 TH/MM3 Lymphocytes # (Auto) 1.0 TH/MM3 Monocytes # (Auto) 0.3 TH/MM3 Eosinophils # (Auto) 0.2 TH/MM3 Basophils # (Auto) 0.0 TH/MM3 CBC Comment DIFF FINAL Differential Comment Prothrombin Time 10.2 SEC Prothromb Time International 0.9 RATIO Ratio Activated Partial 25.8 SEC Thromboplast Time Sodium Level 139 MEQ/L Potassium Level 4.2 MEQ/L Chloride Level 104 MEQ/L Carbon Dioxide Level 25.0 MEQ/L Anion Gap 10 MEQ/L Blood Urea Nitrogen 30 MG/DL Creatinine 2.18 MG/DL Estimat Glomerular Filtration 27 ML/MIN Rate Random Glucose 83 MG/DL Calcium Level 9.2 MG/DL Total Bilirubin 0.2 MG/DL Aspartate Amino Transf 21 U/L (AST/SGOT) Alanine Aminotransferase 23 U/L (ALT/SGPT) Alkaline Phosphatase 89 U/L Total Protein 7.5 GM/DL Albumin 3.8 GM/DL Lipase 245 U/L Urine Color LIGHT-YELLOW Urine Turbidity CLEAR Urine pH 5.5 Urine Specific [place] 1.008 Urine Protein NEG mg/dL Urine Glucose (UA) NEG mg/dL Urine Ketones NEG mg/dL Urine Occult Blood NEG Urine Nitrite NEG Urine Bilirubin NEG Urine Urobilinogen LESS THAN 2.0 MG/DL Urine Leukocyte Esterase SMALL Urine RBC 1 /hpf Urine WBC 2 /hpf Urine Squamous Epithelial 3 /hpf Cells Microscopic Urinalysis Comment CULT NOT INDICATED MDM Medical Decision Making Medical Screen Exam Complete: Yes Emergency Medical Condition: Yes Medical Record Reviewed: Yes Interpretation(s) CT abdomen and pelvis read by the radiologist shows: 1. No obstruction, acute inflammatory changes or other etiology for reported right abdominal pain. 2. Numerous bilateral renal masses, most appearing to represent cysts but some are spontaneously dense. There is a questionable solid mass mid zone of the right kidney that measures about 3 cm in size. Further attempt at evaluation is recommended. In this patient on dialysis, renal ultrasound is suggested first, mainly to evaluate the right mid zone fullness. The ultrasound would probably be difficult to fully exclude other small solid masses but the noncontrast CT appearance is most typical of cysts elsewhere. 3. Apparent bilateral buttock injections, appears to be fairly recent on the left. Differential Diagnosis Constipation, SBO, ileus, psychosomatic, lips abnormality, anxiety, bipolar, other Narrative Course Patient's. Medical records reviewed patient was noted been seen in the ER multiple times for anxiety attack lasting benzos. Patient also has noted history of benzo abuse based on previous records. We'll evaluate patient for reported abdominal pain with constipation then reassess. 1820 patient walked calmly to the bathroom with assistance in no acute distress. Patient reports that she has recently received injections in her buttocks of penicillin secondary to being treated for syphilis. The patient presented with nonspecific abdominal pain. There was no significant history of vomiting or diarrhea and no fever. The patient appeared comfortable, well hydrated and the abdominal exam was mildly tender without guarding or rebound and no focal tenderness to me. Laboratory and radiologic/CT evaluation revealed no significant abnormalities. There was no evidence of an acute, surgical abdomen at this time. There was no clinical evidence to support appendicitis, bowel obstruction, cholecystitis/cholelithiasis, pancreatitis, perforation of gastric ulcer, colitis, diverticulitis, bacterial peritonitis, obstruction, volvulus, hernial incarceration or strangulation at this time. There was no evidence to support vascular pathology such as AAA, mesenteric ischemia. There was also no clinical evidence by history, exam or risk factors to suggest atypical presentation of cardiac disease such as ACS, AMI or atypical angina. No evidence to suggest genitourinary etiology as well. Clinical picture was discussed with the patient, as well as plan of care. The patient was instructed to follow up with their physician. Abdominal pain warnings were discussed with the patient. The patient is to return if worsens, pain worsens or changes, develop fever, inability to tolerate fluids with or without vomiting, unable to establish follow up or as needed. The patient agrees with plan. Patient in no obvious distress upon re-evaluation. All pertinent laboratory/ Radiology result(s) discussed with patient. Patient was instructed on outpatient ultrasound regarding the renal masses noted on CT today. Patient was given 0.5 of Ativan for anxiety prior to discharge. Discussed patient with Dr. Phoenix prior to discharge, who is in agreement with plan of care and disposition.. Any questions/concerns in reference to patient diagnosis/ condition discussed and clarified prior to patient's discharge. Reinforced sheer importance of close follow up with patient's primary physician or primary care clinic. Instructed patient to return to ED immediately, if symptoms return/ worsen. Pt showed understanding of above instructions. Further instructions and recommendations were detailed in discharge paperwork. Pt ambulated without difficulty out of ED at discharge. Diagnosis Primary Impression: Renal mass Additional Impression: Anxiety Patient Instructions: General Instructions Additional Instructions: Follow-up with your primary care physician for further evaluation of your anxiety. Follow-up with your social security assessor for further evaluation of the masses noted on her kidneys today. Obtain outpatient ultrasound. Slip was provided for you to have this done. Call for an appointment. Return to the emergency department if symptoms get worse. Disposition: 01 DISCHARGE HOME Condition: Stable Maynor Lomeli July 11, 2016 17:31
[2016-07-11 17:55] LABS: AUTOMATED NEUTROPHIL # 3.3 TH/MM3 (1.8-7.7); BASOPHIL % 0.8 % (0.0-2.0); EOSINOPHIL # 0.2 TH/MM3 (0-0.4); EOSINOPHIL % 4.3 % (0.0-4.0); HEMATOCRIT 34.1 % (35.0-46.0); HEMO FLAGS DIFF FINAL; LYMPH % 20.7 % (9.0-44.0); MEAN CORPUSCULAR HEMOGLOBIN 29.2 PG (27.0-34.0); MEAN CORPUSCULAR HGB CONC 32.8 % (32.0-36.0); MONO % 6.6 % (0.0-8.0); NEUT % 67.6 % (16.0-70.0); PLATELET COUNT 172 TH/MM3 (150-450); RED BLOOD COUNT 3.83 MIL/MM3 (4.00-5.30); RED CELL DISTRIBUTION WIDTH 13.7 % (11.6-17.2); WHITE BLOOD COUNT 4.8 TH/MM3 (4.0-11.0)
[2016-07-11 18:07] LABS: APTT (PATIENT) 25.8 SEC (24.3-30.1); INTERNATIONAL NORMALIZED RATIO 0.9 RATIO; PROTHROMBIN TIME - PATIENT 10.2 SEC (9.8-11.6)
[2016-07-11 18:22] LABS: ALT (GPT) 23 U/L (10-53); ANION GAP 10 MEQ/L (5-15); AST (GOT) 21 U/L (15-37); BLOOD UREA NITROGEN 30 MG/DL (7-18); CHLORIDE 104 MEQ/L (98-107); GLOMERULAR FILTRATION RATE 27 ML/MIN (>89); POTASSIUM 4.2 MEQ/L (3.5-5.1); SODIUM (NA) 139 MEQ/L (136-145)
[2016-07-11 18:24] LABS: ALKALINE PHOSPHATASE 89 U/L (45-117); TOTAL BILIRUBIN ADULT 0.2 MG/DL (0.2-1.0)
--- NOTE | 2016-07-11 18:46 | RADRPT ---
EXAM DATE/TIME: 07/11/2016 18:13 [facility] COMPARISON: No previous studies available for comparison. INDICATIONS : Right sided abdominal pain; constipation. ORAL CONTRAST: No oral contrast ingested. RADIATION DOSE: 7.97 CTDIvol (mGy) MEDICAL HISTORY : Cerebrovascular disease. Hypertension. Renal failure, chronic. SURGICAL HISTORY : Hysterectomy. ENCOUNTER: Initial ACUITY: 1 day PAIN SCALE: 7/10 LOCATION: abdomen TECHNIQUE: Volumetric scanning of the abdomen and pelvis was performed. Using automated exposure control and ad justment of the mA and/or kV according to patient size, radiation dose was kept as low as reasonably achievable to obtain optimal diagnostic quality images. FINDINGS: LOWER LUNGS: The visualized lower lungs are clear. LIVER: Homogeneous density without lesion. There is no dilation of the biliary tree. No calcified gallston es. SPLEEN: Normal size without lesion. PANCREAS: Within normal limits. KIDNEYS: Numerous bilateral renal cysts are seen measuring up to 2 cm in size. Some of the cysts are spontaneo usly dense typical of proteinaceous or old hemorrhagic debris. A definite solid renal mass is not belkys taylor seen but not fully excluded on these noncontrast images. No renal stones are demonstrated. There is no hydronephrosis or hydroureter. ADRENAL GLANDS: Within normal limits. VASCULAR: There is no aortic aneurysm. BOWEL/MESENTERY: No obstruction or acute inflammatory changes are demonstrated. The amount of stool in the colon is wi thin normal limits. ABDOMINAL WALL: Small bilateral buttock collections are noted. There is a small amount of air on the left, presumably recent injection. Please correlate clinically. RETROPERITONEUM: There is no lymphadenopathy. BLADDER: No wall thickening or mass. REPRODUCTIVE: Within normal limits. INGUINAL: There is no lymphadenopathy or hernia. MUSCULOSKELETAL: No acute bony abnormality demonstrated. Mild scoliosis and degenerative changes seen of the thoracolu mbar spine. There is moderate right hip osteoarthritis with subchondral cystic change. CONCLUSION: 1. No obstruction, acute inflammatory changes or other etiology for reported right abdominal pain. 2. Numerous bilateral renal masses, most appearing to represent cysts but some are spontaneously dens e. There is a questionable solid mass mid zone of the right kidney that measures about 3 cm in size. Further attempt at evaluation is recommended. In this patient on dialysis, renal ultrasound is sugges fabrizio first, mainly to evaluate the right mid zone fullness. The ultrasound would probably be difficult to fully exclude other small solid masses but the noncontrast CT appearance is most typical of cysts elsewhere. 3. Apparent bilateral buttock injections, appears to be fairly recent on the left. Please correlate anuradha sparrow. Freeman Gonzalez MD on July 11, 2016 at 18:36 Board Certified Radiologist. This report was verified electronically.
[2016-07-11 18:58] LABS: BLOOD, URINE NEG (NEG); COMMENT (UR) CULT NOT INDICATED; CULTURE IF INDICATED CULT NOT INDICATED; GLUCOSE,URINE NEG (NEG); KETONE, URINE NEG (NEG); NITRITE,URINE NEG (NEG); PH, URINE 5.5 (5.0-8.5); SQUAMOUS EPITHELIAL CELL URINE 3 /hpf (0-5); URINE COLOR LIGHT-YELLOW (YELLW/STRAW)
[2016-07-11] MEDS ORDERED: LORazepam 0.5 MG TAB PO ONE (19:30)
== END 2016-07-11 19:47 | disposition home or self-care (01) ==
LOC: NEPE 17:11
DX: R10.11 Right upper quadrant pain (principal); F41.9 Anxiety disorder, unspecified; N28.89 Other specified disorders of kidney and ureter; K59.00 Constipation, unspecified; I12.9 Hypertensive chronic kidney disease with stage 1 through stage 4 chronic kidney disease, or unspecified chronic kidney disease; N18.9 Chronic kidney disease, unspecified
CPT/HCPCS: 74176; 80053; 81001; 83690; 85025; 85610; 85730

== ENCOUNTER → 2016-07-20 | Outpatient (CLI) | payer MEDICARE, OTHER ==
[2016-07-20 13:46] LABS: BACTERIA, URINE RARE /hpf; BLOOD, URINE NEG (NEG); GLUCOSE,URINE NEG (NEG); KETONE, URINE NEG (NEG); NITRITE,URINE NEG (NEG); PH, URINE 5.5 (5.0-8.5); SQUAMOUS EPITHELIAL CELL URINE 3 /hpf (0-5); URINE COLOR YELLOW (YELLW/STRAW)
[2016-07-20 13:50] LABS: URINE TOTAL PROTEIN TIMED 26.4 MG/DL
[2016-07-20 13:57] LABS: HEMATOCRIT 33.2 % (35.0-46.0); MEAN CELL VOLUME 89.5 FL (80.0-100.0); MEAN CORPUSCULAR HEMOGLOBIN 29.5 PG (27.0-34.0); MEAN CORPUSCULAR HGB CONC 32.9 % (32.0-36.0); PLATELET COUNT 164 TH/MM3 (150-450); RED BLOOD COUNT 3.71 MIL/MM3 (4.00-5.30); RED CELL DISTRIBUTION WIDTH 13.9 % (11.6-17.2); REVIEW FLAG FINAL; WHITE BLOOD COUNT 3.5 TH/MM3 (4.0-11.0)
[2016-07-20 14:14] LABS: BICARBONATE 27.5 MEQ/L (21.0-32.0); POTASSIUM 4.7 MEQ/L (3.5-5.1)
[2016-07-20 14:30] LABS: KAPPA LAMBDA RATIO 0.86 (1.57-3.93); TOTAL PROTEIN SPE 7.4 GM/DL (6.0-7.6)
[2016-07-21 11:48] LABS: ALBUMIN SPE 3.99 GM/DL (3.50-5.00); ALPHA 1 GLOBULIN 0.21 GM/DL (0.11-0.29); ALPHA 2 GLOBULIN 0.96 GM/DL (0.22-1.00); BETA GLOBULINS (SPE) 0.88 GM/DL (0.53-1.03)
[2016-07-23 23:51] LABS: KAPPA/LAMBDA FREE 0.26 (0.26-1.65)
== END ==
LOC: CLAB 12:56
PROVIDERS: ATTEND Physician Assistant
DX: D64.9 Anemia, unspecified (principal); N18.4 Chronic kidney disease, stage 4 (severe); D47.2 Monoclonal gammopathy
CPT/HCPCS: 36415; 80069; 81001; 82306; 82570; 82784; 83883; 83970; 84155; 84156; 84165; 85027; 86334; 86335

== ENCOUNTER → 2016-09-17 | Outpatient (CLI) | payer MEDICARE, OTHER ==
[2016-09-17 12:21] LABS: HEMATOCRIT 32.5 % (35.0-46.0); MEAN CELL VOLUME 89.8 FL (80.0-100.0); MEAN CORPUSCULAR HEMOGLOBIN 29.8 PG (27.0-34.0); MEAN CORPUSCULAR HGB CONC 33.2 % (32.0-36.0); PLATELET COUNT 184 TH/MM3 (150-450); RED BLOOD COUNT 3.62 MIL/MM3 (4.00-5.30); REVIEW FLAG FINAL; WHITE BLOOD COUNT 3.6 TH/MM3 (4.0-11.0)
[2016-09-17 12:29] LABS: BACTERIA, URINE RARE /hpf; BLOOD, URINE NEG (NEG); COMMENT (UR) CULT NOT INDICATED; CULTURE IF INDICATED CULT NOT INDICATED; GLUCOSE,URINE NEG (NEG); KETONE, URINE NEG (NEG); MUCUS URINE FEW /lpf (OCC); NITRITE,URINE NEG (NEG); PH, URINE 5.5 (5.0-8.5); SQUAMOUS EPITHELIAL CELL URINE 4 /hpf (0-5); URINE COLOR LIGHT-YELLOW (YELLW/STRAW)
[2016-09-17 12:49] LABS: BICARBONATE 22.1 MEQ/L (21.0-32.0); POTASSIUM 4.1 MEQ/L (3.5-5.1)
== END ==
LOC: CLAB 11:52
PROVIDERS: ATTEND Internal Medicine Nephrology
DX: N25.81 Secondary hyperparathyroidism of renal origin (principal); N18.3 Chronic kidney disease, stage 3 (moderate)
CPT/HCPCS: 36415; 80069; 81001; 82570; 83970; 84156; 85027

== ENCOUNTER → 2016-12-02 | Outpatient (CLI) | payer MEDICARE, OTHER | LOC: CLAB 15:03 | PROVIDERS: ATTEND Internal Medicine Infectious Disease | DX: E11.9 Type 2 diabetes mellitus without complications (principal); R29.6 Repeated falls; R41.3 Other amnesia; A53.9 Syphilis, unspecified; Z86.73 Personal history of transient ischemic attack (TIA), and cerebral infarction without residual deficits | CPT/HCPCS: 36415; 86592; 86593 ==

== ENCOUNTER → 2016-12-31 | Outpatient (CLI) | payer MEDICARE, OTHER ==
[~2016-12-31] MED LIST changes: -ASPI81TA11 PO; +ASPI81TA23 PO
[2016-12-31 16:31] LABS: AUTOMATED NEUTROPHIL # 3.3 TH/MM3 (1.8-7.7); BASOPHIL % 0.8 % (0.0-2.0); EOSINOPHIL # 0.4 TH/MM3 (0-0.4); EOSINOPHIL % 8.9 % (0.0-4.0); HEMATOCRIT 34.6 % (35.0-46.0); HEMO FLAGS DIFF FINAL; LYMPH % 17.1 % (9.0-44.0); LYMPHOCYTE # 0.8 TH/MM3 (1.0-4.8); MEAN CELL VOLUME 90.3 FL (80.0-100.0); MEAN CORPUSCULAR HEMOGLOBIN 29.7 PG (27.0-34.0); MEAN CORPUSCULAR HGB CONC 32.9 % (32.0-36.0); MONO % 5.1 % (0.0-8.0); NEUT % 68.1 % (16.0-70.0); PLATELET COUNT 233 TH/MM3 (150-450); RED BLOOD COUNT 3.83 MIL/MM3 (4.00-5.30); RED CELL DISTRIBUTION WIDTH 13.7 % (11.6-17.2); WHITE BLOOD COUNT 4.8 TH/MM3 (4.0-11.0)
[2016-12-31 16:47] LABS: ANION GAP 8 MEQ/L (5-15); AST (GOT) 16 U/L (15-37); BICARBONATE 24.1 MEQ/L (21.0-32.0); BLOOD UREA NITROGEN 16 MG/DL (7-18); CHLORIDE 106 MEQ/L (98-107); GLOMERULAR FILTRATION RATE 24 ML/MIN (>89); GLUCOSE,FASTING 124 MG/DL (74-99); POTASSIUM 4.3 MEQ/L (3.5-5.1); SODIUM (NA) 138 MEQ/L (136-145)
[2016-12-31 16:48] LABS: ALT (GPT) 22 U/L (10-53)
[2016-12-31 16:50] LABS: ALKALINE PHOSPHATASE 78 U/L (45-117); TOTAL BILIRUBIN ADULT 0.2 MG/DL (0.2-1.0)
== END ==
LOC: CLAB 15:36
DX: R11.0 Nausea (principal)
CPT/HCPCS: 36415; 80053; 83690; 85025

== ENCOUNTER → 2017-02-22 | Outpatient (CLI) | payer MEDICARE, OTHER ==
[2017-02-22 16:39] LABS: HEMATOCRIT 34.1 % (35.0-46.0); MEAN CELL VOLUME 89.7 FL (80.0-100.0); MEAN CORPUSCULAR HEMOGLOBIN 28.8 PG (27.0-34.0); MEAN CORPUSCULAR HGB CONC 32.2 % (32.0-36.0); MEAN PLATELET VOLUME 9.1 FL (7.0-11.0); PLATELET COUNT 218 TH/MM3 (150-450); WHITE BLOOD COUNT 3.8 TH/MM3 (4.0-11.0)
[2017-02-22 17:08] LABS: ALBUMIN 3.6 GM/DL (3.4-5.0); BICARBONATE 23.6 MEQ/L (21.0-32.0); BLOOD UREA NITROGEN 18 MG/DL (7-18); CALCIUM 9.4 MG/DL (8.5-10.1); CHLORIDE 107 MEQ/L (98-107); CREATININE 2.81 MG/DL (0.50-1.00); GLOMERULAR FILTRATION RATE 20 ML/MIN (>89); GLUCOSE,FASTING 119 MG/DL (74-99); SODIUM (NA) 139 MEQ/L (136-145)
[2017-02-22 17:09] LABS: IRON (FE) 52 MCG/DL (50-170)
[2017-02-22 17:13] LABS: % SATURATION IRON PROFILE 17.4 % (20-50); FERRITIN 313 NG/ML (8-252); PHOSPHORUS 4.4 MG/DL (2.5-4.9); TOTAL IRON BINDING CAPACITY 298 MCG/DL (250-450)
== END ==
LOC: CLAB 15:35
PROVIDERS: ATTEND Internal Medicine Nephrology
DX: E55.9 Vitamin D deficiency, unspecified (principal); N18.4 Chronic kidney disease, stage 4 (severe); D63.1 Anemia in chronic kidney disease
CPT/HCPCS: 36415; 80069; 82306; 82728; 83540; 83550; 83970; 85027

== ENCOUNTER → 2017-03-30 | Outpatient (CLI) | payer MEDICARE, OTHER ==
[2017-03-30 15:49] LABS: HEMATOCRIT 34.9 % (35.0-46.0); HEMOGLOBIN 11.5 GM/DL (11.6-15.3); MEAN CELL VOLUME 89.1 FL (80.0-100.0); MEAN CORPUSCULAR HEMOGLOBIN 29.3 PG (27.0-34.0); MEAN CORPUSCULAR HGB CONC 32.9 % (32.0-36.0); MEAN PLATELET VOLUME 8.9 FL (7.0-11.0); PLATELET COUNT 215 TH/MM3 (150-450); RED BLOOD COUNT 3.92 MIL/MM3 (4.00-5.30); RED CELL DISTRIBUTION WIDTH 14.5 % (11.6-17.2); WHITE BLOOD COUNT 4.6 TH/MM3 (4.0-11.0)
[2017-03-30 16:06] LABS: BILIRUBIN, URINE NEG (NEG); BLOOD, URINE NEG (NEG); GLUCOSE,URINE NEG (NEG); KETONE, URINE NEG (NEG); MUCUS URINE FEW /lpf (OCC); NITRITE,URINE NEG (NEG); PH, URINE 5.5 (5.0-8.5); SQUAMOUS EPITHELIAL CELL URINE 4 /hpf (0-5); URINE COLOR YELLOW (YELLW/STRAW); URINE LEUKOCYTE ESTERASE NEG (NEG)
[2017-03-30 16:12] LABS: ALBUMIN 3.7 GM/DL (3.4-5.0); BICARBONATE 25.9 MEQ/L (21.0-32.0); CALCIUM 9.6 MG/DL (8.5-10.1); CREATININE 2.74 MG/DL (0.50-1.00)
== END ==
LOC: CLAB 15:27
PROVIDERS: ATTEND Internal Medicine Nephrology
DX: N18.4 Chronic kidney disease, stage 4 (severe) (principal); D63.1 Anemia in chronic kidney disease
CPT/HCPCS: 36415; 80069; 81001; 82570; 84156; 85027

== ENCOUNTER → 2017-06-08 | Outpatient (CLI) | payer MEDICARE, OTHER ==
[2017-06-08 13:12] LABS: HEMATOCRIT 34.6 % (35.0-46.0); HEMOGLOBIN 11.1 GM/DL (11.6-15.3); MEAN CELL VOLUME 92.6 FL (80.0-100.0); MEAN CORPUSCULAR HEMOGLOBIN 29.8 PG (27.0-34.0); MEAN CORPUSCULAR HGB CONC 32.2 % (32.0-36.0); PLATELET COUNT 202 TH/MM3 (150-450); RED BLOOD COUNT 3.73 MIL/MM3 (4.00-5.30); RED CELL DISTRIBUTION WIDTH 15.3 % (11.6-17.2); WHITE BLOOD COUNT 3.2 TH/MM3 (4.0-11.0)
[2017-06-08 13:36] LABS: ALBUMIN 3.9 GM/DL (3.4-5.0); BICARBONATE 25.2 MEQ/L (21.0-32.0); CALCIUM 9.6 MG/DL (8.5-10.1); CREATININE 2.49 MG/DL (0.50-1.00)
[2017-06-08 13:52] LABS: BILIRUBIN, URINE NEG (NEG); BLOOD, URINE NEG (NEG); GLUCOSE,URINE NEG (NEG); HYALINE CAST, URINE 3 /lpf (RARE); KETONE, URINE NEG (NEG); MUCUS URINE FEW /lpf (OCC); NITRITE,URINE NEG (NEG); PH, URINE 5.5 (5.0-8.5); SQUAMOUS EPITHELIAL CELL URINE 5 /hpf (0-5); URINE COLOR LIGHT-YELLOW (YELLW/STRAW); URINE LEUKOCYTE ESTERASE NEG (NEG)
== END ==
LOC: CLAB 12:27
PROVIDERS: ATTEND Physician Assistant
DX: E55.9 Vitamin D deficiency, unspecified (principal); N18.4 Chronic kidney disease, stage 4 (severe)
CPT/HCPCS: 36415; 80069; 81001; 82306; 82570; 83970; 84156; 85027